=== PATIENT | male | born 1980 | race Two or more races ===

== ENCOUNTER 2023-10-19 08:28 | Emergency (ER) | payer OTHER ==
[~2023-10-19] VITALS: Ht 180.3 cm; Wt 90.9 kg
[2023-10-19 08:50] VITALS: TEMP 98.8
[2023-10-19] MEDS ORDERED: CEPH-558 PO (10:46)
[2023-10-19] MEDS ORDERED: ACET-2080 PO (10:46)
[2023-10-19 11:15] VITALS: BP 124/86; PULSE 69; RESP 16; O2SAT 99
== END 2023-10-19 11:29 | disposition home or self-care (01) ==
LOC: EMS 08:28
DX: S83.91XA Sprain of unspecified site of right knee, initial encounter (principal); Z89.421 Acquired absence of other right toe(s); Z98.890 Other specified postprocedural states; X50.0XXA Overexertion from strenuous movement or load, initial encounter; Y93.89 Activity, other specified; Y92.89 Other specified places as the place of occurrence of the external cause; Y99.8 Other external cause status
CPT/HCPCS: 99283